=== PATIENT | male | born 1960 | race Caucasian/White ===

== ENCOUNTER 2024-08-04 09:05 | Inpatient (IN) | payer OTHER ==
[~2024-08-04] VITALS: Ht 167.6 cm; Wt 60.4 kg
[2024-08-04 09:50] VITALS: PULSE 110; RESP 18; O2SAT 98
[2024-08-04] MEDS: ALBUTEROL (0.083%) 2.5MG/3ML NEB HHN STA (09:50)
[2024-08-04] MEDS: IPRATROPIUM BROMIDE (0.02%) 0.5MG/2.5ML NEB HHN STA (09:50)
[2024-08-04 10:01] LABS: BASOPHILS % 0.7 % (0.0-2.0); HEMATOCRIT. 43.7 % (42.0-52.0); HEMOGLOBIN. 15.1 g/dL (14.0-18.0); LYMPHOCYTES % 16.2 % (20.0-50.0); MEAN CORPUSCULAR HEMOGLOBIN 33.6 pg (28.0-32.0); MEAN CORPUSCULAR HGB CONC 34.6 g/dL (31.0-37.0); MEAN CORPUSCULAR VOLUME 97.1 fL (80.0-94.0); MEAN PLATELET VOLUME 10.2 fl (7.4-10.4); NEUTROPHILS % 75.1 % (40.0-76.0); PLATELET 157 x1000/uL (130-400); RED CELL DISTRIBUTION WIDTH 13.3 % (11.6-14.6); WHITE BLOOD COUNT 7.6 x1000/uL (4.5-11.0)
[2024-08-04 10:06] LABS: CHLORIDE 105 mEq/L (98-107); POTASSIUM 3.5 mEq/L (3.5-5.1); SODIUM 142 mEq/L (136-145)
[2024-08-04 10:07] LABS: CARBON DIOXIDE 26 mEq/L (21-32)
[2024-08-04 10:12] LABS: GLUCOSE 119 mg/dL (70-105); UREA NITROGEN BLOOD 12 mg/dL (9-23)
[2024-08-04 10:13] LABS: TROPONIN I HIGH SENSITIVITY 6 ng/L (3.0-53)
[2024-08-04] MEDS ORDERED: DOCUSATE SODIUM 100MG CAPSULE PO PRN (13:15)
[2024-08-04] MEDS ORDERED: ACETAMINOPHEN 325MG TABLET PO PRN ×2 (13:15)
[2024-08-04] MEDS ORDERED: GUAIFENESIN 200MG/10ML SUGAR FREE UDC PO PRN (13:15)
[2024-08-04] MEDS ORDERED: ONDANSETRON HCL 4MG/2ML INJ IV PRN (13:15)
[2024-08-04] MEDS ORDERED: CLONIDINE 0.1MG TABLET PO PRN (13:15)
[2024-08-04] MEDS: METHYLPREDNISOLONE SOD SUCC 125MG/2ML (ACT-O-VIAL) IV STA (13:59)
[2024-08-04] MEDS ORDERED: AZITHROMYCIN 250 MG in DEXT 5% WATER 250 ML IV SCH (16:00)
[2024-08-04 16:02] LABS: CLARITY URINE CLEAR (CLEAR); COLOR URINE YELLOW (YELLOW); GLUCOSE URINE NEGATIVE (NEGATIVE); KETONES URINE TRACE (NEGATIVE); LEUKOCYTE ESTERASE URINE NEGATIVE (NEGATIVE); NITRITE URINE NEGATIVE (NEGATIVE); OCCULT BLOOD URINE NEGATIVE (NEGATIVE); PH URINE 5.5 (4.5-8.0); PROTEIN URINE NEGATIVE (NEGATIVE); SPECIFIC GRAVITY URINE 1.016 (1.005-1.030); UROBILINOGEN URINE 0.2 E.U./dL (0.2-1.0)
[2024-08-04] MEDS: AZITHROMYCIN 500MG in NS 250ML IV SCH (16:02)
[2024-08-04 16:12] LABS: *AMPHETAMINES SCREEN URINE NEGATIVE (NEGATIVE); *BARBITURATES SCREEN URINE NEGATIVE (NEGATIVE); *BENZODIAZEPINES SCREEN URINE NEGATIVE (NEGATIVE); *COCAINE SCREEN URINE NEGATIVE (NEGATIVE); METHADONE URINE SCREEN NEGATIVE (NEGATIVE); OPIATES URINE SCREEN NEGATIVE (NEGATIVE); PHENCYCLIDINE URINE SCREEN NEGATIVE (NEGATIVE)
[2024-08-04 16:13] LABS: CANNABINOID URINE SCREEN NEGATIVE (NEGATIVE); ECSTASY MDMA SCREEN URINE NEGATIVE (NEGATIVE)
[2024-08-04 16:40] LABS: BG BASE EXCESS 0.3 mmol/L (-2.0-3.0); BG CARBOXYHEMOGLOBIN 0.3 % (0.5-1.5); BG DEOXYHEMOGLOBIN 0.6 % (0.0-5.0); BG FRACTION INSPIRED OXYGEN 44; BG HCO3 ACT 24.9 mmol/L (21.0-28.0); BG METHEMOGLOBIN 0.2 % (0.5-1.5); BG OXYGEN SATURATION 99.4 % (94.0-98.0); BG OXYHEMOGLOBIN 98.9 % (94.0-98.0); BG PCO2 40.3 mmHg (35.0-48.0); BG PH 7.409 (7.350-7.450); BG PO2 168.5 mmHg (83.0-108.0); BG SAMPLE SITE RIGHT BRACHIAL; BG TOTAL HEMOGLOBIN 14.9 g/dL (13.5-17.5); BG VENT MODE NASAL CANNULA
[2024-08-04 18:10] VITALS: BP 125/79; PULSE 94; RESP 20; TEMP 36.6; O2SAT 97
[2024-08-04] MEDS ORDERED: DEXTROSE 50% WATER 50ML SYRINGE IV PRN (19:15)
[2024-08-04 20:00] VITALS: BP 134/80; PULSE 87; RESP 20; TEMP 36.4; O2SAT 99
[2024-08-04 20:01] VITALS: PULSE 102; RESP 18; O2SAT 99
[2024-08-04] MEDS: BLOOD SUGAR DIAGNOSTIC STRIP TEST SCH (21:55)
[2024-08-04 22:10] LABS: PHOSPHORUS 1.8 mg/dL (2.5-4.9)
[2024-08-04 22:13] VITALS: BP 149/73; PULSE 103; RESP 24; TEMP 36.8
[2024-08-04] MEDS: IPRATROPIUM/ALBUTEROL 0.5-3(2.5)MG/3ML NEB HHN PRN (22:55)
[2024-08-04 23:02] VITALS: BP 109/74; PULSE 138; RESP 20; TEMP 36.4; O2SAT 99
[2024-08-04] MEDS ORDERED: AMLO10TA80 PO (23:23)
[2024-08-05] VITALS (11 sets, daily range): BP systolic 128–158; BP diastolic 79–97; PULSE 78–103; RESP 18–24; TEMP 36.2–36.6; O2SAT 95–100
[2024-08-05] MEDS: MELATONIN 3MG TABLET PO SCH (03:33)
[2024-08-05] MEDS: IPRATROPIUM BROMIDE (0.02%) 0.5MG/2.5ML NEB HHN SCH (07:30)
[2024-08-05 08:06] LABS: BASOPHILS % 0.1 % (0.0-2.0); EOSINOPHILS % 0.1 % (0.0-5.0); HEMATOCRIT. 42.5 % (42.0-52.0); HEMOGLOBIN. 14.4 g/dL (14.0-18.0); LYMPHOCYTES % 10.4 % (20.0-50.0); MEAN CORPUSCULAR HEMOGLOBIN 33.5 pg (28.0-32.0); MEAN CORPUSCULAR HGB CONC 33.9 g/dL (31.0-37.0); MEAN CORPUSCULAR VOLUME 98.8 fL (80.0-94.0); MEAN PLATELET VOLUME 10.4 fl (7.4-10.4); MONOCYTES % 6.3 % (2.0-8.0); NEUTROPHILS % 83.1 % (40.0-76.0); PLATELET 156 x1000/uL (130-400); RED CELL DISTRIBUTION WIDTH 13.5 % (11.6-14.6); WHITE BLOOD COUNT 5.7 x1000/uL (4.5-11.0)
[2024-08-05 08:23] LABS: ALBUMIN 4.5 g/dL (3.2-4.8)
[2024-08-05 08:24] LABS: T4 FREE 1.12 ng/dL (0.89-1.76); THYROID STIMULATING HORMONE 0.17 uIU/mL (0.55-4.78)
[2024-08-05 08:48] LABS: ALANINE AMINOTRANSFERASE 21 IU/L (10-49); ALBUMIN 4.3 g/dL (3.2-4.8); ASPARTATE AMINOTRANSFERASE 37 IU/L (<34); BILIRUBIN DIRECT 0.1 mg/dL (<=3.0); BILIRUBIN TOTAL 0.4 mg/dL (0.1-1.0); PROTEIN TOTAL 7.4 g/dL (6.0-8.3)
[2024-08-05] MEDS: POTASSIUM PHOSPHATE 15 MMOL in SODIUM CHLORIDE 0.9% 245 ML IV NR (09:37)
[2024-08-05] MEDS: PANTOPRAZOLE SODIUM 40 MG/VIAL IV SCH (09:37)
[2024-08-05] MEDS: METHYLPREDNISOLONE SOD SUCC 40MG/ML (ACT-O-VIAL) IV SCH (09:37)
[2024-08-05] MEDS: AZITHROMYCIN 500 MG TABLET PO NR (14:30)
[2024-08-05 14:48] LABS: BG BASE EXCESS 0.5 mmol/L (-2.0-3.0); BG CARBOXYHEMOGLOBIN 0.3 % (0.5-1.5); BG DEOXYHEMOGLOBIN 7.1 % (0.0-5.0); BG FRACTION INSPIRED OXYGEN 21; BG HCO3 ACT 24.6 mmol/L (21.0-28.0); BG METHEMOGLOBIN 0.3 % (0.5-1.5); BG OXYGEN SATURATION 92.9 % (94.0-98.0); BG OXYHEMOGLOBIN 92.3 % (94.0-98.0); BG PH 7.429 (7.350-7.450); BG PO2 64.7 mmHg (83.0-108.0); BG SAMPLE SITE RIGHT RADIAL; BG TOTAL HEMOGLOBIN 15.9 g/dL (13.5-17.5); BG VENT MODE ROOM AIR
[2024-08-05] MEDS ORDERED: METHYLPREDNISOLONE 40MG/ML INJ IV SCH (18:00)
[2024-08-05] MEDS: FAMOTIDINE 20MG TABLET PO SCH (21:58)
[2024-08-05] MEDS: POTASSIUM PHOSPHATE 15 MMOL in DEXT 5% WATER 250 ML IV NR (22:00)
[2024-08-06] VITALS (9 sets, daily range): BP systolic 131–156; BP diastolic 71–81; PULSE 74–106; RESP 16–22; TEMP 36.6–36.8; O2SAT 94–99
[2024-08-06] MEDS: AZITHROMYCIN 500 MG TABLET PO SCH (09:08)
[2024-08-06] MEDS: POTASSIUM PHOSPHATE 15 MMOL in DEXT 5% WATER 245 ML IV NR (10:00)
[2024-08-06 11:33] LABS: CHLORIDE 101 mEq/L (98-107); POTASSIUM 4.4 mEq/L (3.5-5.1); SODIUM 139 mEq/L (136-145)
[2024-08-06 11:34] LABS: CALCIUM 9.6 mg/dL (8.7-10.4); CARBON DIOXIDE 28 mEq/L (21-32)
[2024-08-06 11:39] LABS: CREATININE 0.8 mg/dL (0.6-1.3); GLUCOSE 131 mg/dL (70-105); UREA NITROGEN BLOOD 18 mg/dL (9-23)
[2024-08-06 11:41] LABS: PHOSPHORUS 3.3 mg/dL (2.5-4.9)
[2024-08-06] MEDS ORDERED: ALBU18HF2 IH (13:03)
[2024-08-06] MEDS ORDERED: AMLO5TAB88 PO (13:03)
[2024-08-06] MEDS ORDERED: TIOT4MIS4 PO (13:03)
== END 2024-08-06 18:30 | disposition home or self-care (01) | DRG 189 ==
LOC: ER 09:05 → 6WST 20:20
PROVIDERS: ADMIT Internal Medicine; ATTEND Internal Medicine
DX: J96.01 Acute respiratory failure with hypoxia (principal); J44.1 Chronic obstructive pulmonary disease with (acute) exacerbation; I10 Essential (primary) hypertension; R73.03 Prediabetes; R73.9 Hyperglycemia, unspecified; E83.39 Other disorders of phosphorus metabolism; F17.210 Nicotine dependence, cigarettes, uncomplicated; E87.6 Hypokalemia; Z91.148 Patient's other noncompliance with medication regimen for other reason
CPT/HCPCS: 36415; 36600; 71045; 80048; 80061; 80076; 80305; 81003; 82040; 82375; 82805; 82962; 83036; 83735; 83880; 84100; 84439; 84443; 84484; 85025; 93005; 93970; 94070; 94640; 94664; 94760; 97161; 97166; 97530; 98960; 99285; A4606; J0456; J2470; J2919; J2920; J3490; J7050; J7060